=== PATIENT | male | born 1985 | race Caucasian/White ===

== ENCOUNTER 2017-05-09 04:22 | Emergency (ER) | payer MEDICAID ==
--- NOTE | 2017-05-09 04:49 | EDPHY ---
H & P Time Seen by Provider: 05/09/17 04:42 HPI/ROS: HPI Right testicular pain. 31-year-old male by private vehicle. This patient reports that he was sleeping in his car. He reports that he was getting ready to sleep about an hour ago. He was changing his clothes a thinks he twisted or hit his right testicle in the process. He reports that he felt a pop sensation at the under side and base of the right testicle. This was followed by a discomfort in the right testicle which has persisted but improved. He rates his pain currently as a 5/ 10. He denies sexual activity. No gross hematuria. No discharge. No other complaints. He has a history of a left-sided testicular cyst. ROS: Constitutional: No fever, no chills. No weakness. Gastrointestinal: No abdominal pain, no vomiting, no diarrhea. Genitourinary: No hematuria. No dysuria or increased frequency with urination. As above. Musculoskeletal: No back pain. No myalgias or arthralgias. Skin: No rashes. No lacerations or abrasions. Neurological: No focal weakness or altered sensation. Past medical history: Includes a cyst on his left upper testicle. Depression. Anxiety. Uses marijuana. Social history: Denies alcohol. Here by himself. Marijuana user. As above. Physical Exam: General Appearance: Alert, no distress. This patient is responding to questions appropriately and in full sentences. This patient appears well- hydrated and well-nourished. Testicular exam: No clinical evidence of torsion. Normal testicular lie. He is not tender over the area of the epididymis bilaterally. There are no masses palpable. Scrotum is without rash, edema, erythema, ecchymosis, warmth or swelling. Normal penis on gross inspection. No penile lesions. No discharge from the meatus. Gastrointestinal: Abdomen is soft and nontender, no masses, bowel sounds normal. No focal tenderness at McBurney's point. No Ceja sign. Neurological: Motor sensory function is grossly intact. Cranial nerves are normal. Gait is normal. Skin: Warm and dry, no rashes. Extremities are symmetrical. All joints range without pain or impingement. Psychiatric: No agitation. No depression. Database: EKG: Imaging: Testicular ultrasound: There is a minimal right-sided hydrocele. Complex left epididymal cyst noted. Blood flow to both testes is normal. No other significant findings. Results were discussed with staff radiologist Dr. David Fernandes. Procedures: Emergency department course: I discussed obtaining a testicular ultrasound for further evaluation with the patient. He consents. 6:00 a.m., testicular ultrasound results as above. No evidence of torsion or other acute pathology. Results were discussed with the patient. He denies any significant pain at this time. He feels comfortable going home. Return to emergency department precautions were thoroughly reviewed with him. Follow-up with Urology discussed. All of his questions were answered. He was discharged in good condition. Differential Diagnosis: The differential diagnosis on this patient includes but is not limited to testicular contusion, hydrocele and chronic left testicular cyst. Testicular torsion, epididymitis, STI, ruptured testicle unlikely. This represents a partial list of diagnoses considered. These considerations are based on history , physical exam, past history, reassessment and diagnostic testing. Smoking Status: Heavy smoker Allergies/Adverse Reactions: No Known Allergies Allergy (Unverified 05/09/17 04:24) Home Medications: Medication Instructions Recorded NK [No Known Home Meds] 05/09/17 Departure - Departure Disposition: Home, Routine, Self-Care Clinical Impression: Right testicular pain Condition: Good Instructions: Testicle Pain (ED) Additional Instructions: Read and follow provided instructions. Follow-up with Urology this coming week for re-evaluation and further management as needed. Call the office of Dr. Pagan on Thursday morning for appointment time. Explain this is for an emergency department follow-up. Return to the emergency department for return of pain, swelling or discoloration to the testicle, or other serious concerns. Referrals: Alfredo Pagan MD [Medical Doctor] - As per Instructions
[2017-05-09 06:20] VITALS: BP 110/67; PULSE 86; RESP 16; TEMP 98.4; O2SAT 96
== END 2017-05-09 06:10 | disposition home or self-care (01) ==
LOC: CED 04:22
DX: N50.811 Right testicular pain (principal)
CPT/HCPCS: 76870-PO

== ENCOUNTER 2017-09-12 06:22 | Emergency (ER) | payer MEDICAID ==
[2017-09-12 06:26] VITALS: BP 116/75
--- NOTE | 2017-09-12 06:51 | EDPHY ---
H & P Stated Complaint: L side abd pain r side groin pain for "a while" Time Seen by Provider: 09/12/17 06:28 HPI/ROS: HPI The patient presents with right groin pain which has been present for the last several weeks and is getting progressively worse. He was doing some research on the Internet this morning and became worried that there was something serious going on so we came to the emergency department. He describes an achy pain in his right groin that radiates down his right inner thigh. He says the pain feels muscular. He has not noticed any bulge in his groin. He does not have any testicular pain. He was in the emergency department in April of 2017 with testicular pain. He had a testicular ultrasound which revealed a complex cystic structure of his left testicle. He was supposed to follow up with Urology, but had difficulties with his insurance. He has been to another hospitals emergency department for this groin pain but was told it was a muscle pull.. REVIEW OF SYSTEMS Constitutional: No fever, no chills. Eyes: No discharge. ENT: No sore throat. Cardiovascular: No chest pain, no palpitations. Respiratory: No cough, no shortness of breath. Gastrointestinal: No abdominal pain, no vomiting. Genitourinary: No hematuria. Musculoskeletal: No back pain. Skin: No rashes. Neurological: No headache. PMHx: History of depression and anxiety Soc Hx: Marijuana user, currently homeless PHYSICAL General Appearance: Alert, no distress Eyes: Pupils equal and round no pallor or injection ENT, Mouth: Mucous membranes moist Respiratory: There are no retractions, lungs are clear to auscultation Cardiovascular: Regular rate and rhythm Gastrointestinal: Abdomen is soft and non-tender, no masses, bowel sounds normal : There is no clear defect felt in the inguinal region bilaterally, there is no testicular tenderness or overlying skin change Neurological: A&O, moves all extremities Skin: Warm and dry, no rashes Musculoskeletal: Neck is supple non tender Extremities: symmetrical, full range of motion Psychiatric: Patient is oriented X 3, there is no agitation Source: Patient Exam Limitations: No limitations - Personal History Current Tetanus/Diphtheria Vaccine: Unsure Current Tetanus Diphtheria and Acellular Pertussis (TDAP): Unsure - Medical/Surgical History Hx Asthma: No Hx Chronic Respiratory Disease: No Hx Diabetes: No Hx Cardiac Disease: No Hx Renal Disease: No Hx Cirrhosis: No Hx Alcoholism: No Hx HIV/AIDS: No Hx Splenectomy or Spleen Trauma: No Other PMH: R/O Cyst in throat. Marijuana user, depression, anxiety. - Social History Smoking Status: Heavy smoker Constitutional: Initial Vital Signs Temperature (C) 36.7 C 09/12/17 06:24 Heart Rate 103 H 09/12/17 06:24 Respiratory Rate 16 09/12/17 06:24 Blood Pressure 116/75 09/12/17 06:24 O2 Sat (%) 97 09/12/17 06:24 O2 Delivery Mode Room Air Allergies/Adverse Reactions: No Known Allergies Allergy (Unverified 05/09/17 04:24) Home Medications: Medication Instructions Recorded NK [No Known Home Meds] 05/09/17 Medical Decision Making Differential Diagnosis: This is a 31-year-old male who presents with several weeks of right-sided groin pain, worse when he sits. The pain radiates down his leg. On exam, he is generally well-appearing. I do not feel any defect in the inguinal region to suggest hernia, however he may have a small inguinal hernia based on his history. There is no evidence of testicular torsion or epididymitis given no testicular complaints or tenderness. He could possibly be suffering from groin strain. I have instructed him to use ibuprofen, ice, lie flat when he has pain. I will refer him to the general surgeon on-call for possible inguinal hernia. He is most concerned because he is currently uninsured though is working on obtaining Medicaid. I will put in a referral for our manager social responsibility as well. He does have this cyst of his left scrotum which I do not feel is contributing to his symptoms, though should be followed by a urologist and I have explained this to him. Departure - Departure Disposition: Home, Routine, Self-Care Clinical Impression: Right groin pain Condition: Good Instructions: Inguinal Hernia (ED) Additional Instructions: I suspect her pain could be related to a small inguinal hernia. If your having pain I recommend you take ibuprofen, try an ice pack, try laying down flat. I would recommend that you follow up with a general surgeon and I have given you information for 1 below. Please return to the emergency department if your worse in any way. Referrals: Adalberto Varela MD [Medical Doctor] - As per Instructions [facility],. [Clinic] - As per Instructions
--- NOTE | 2017-09-14 19:14 | ASMTCMCOM ---
CM Note CM Note Notes: Received a Case Mgmt consult order to follow-up with pt re: follow-up with general surgeon and urology. Spoke with patient and he states he will contact Dr Sridhar Varela ([phone]) later today. Spoke with Rachel at Dr Givens's office and alerted office of patient needing an appointment. Patient also states he plans on calling Dr Pagan with urology and schedule an appt. Patient states that now that his Medicaid is active again, he thinks he shouldn't have issues getting an appt. Patient provided the ED CM # in case he has further issues. CM available for further assistance if needed. Date Signed: 09/14/2017 07:13 PM Electronically Signed By:Paola Pratt RN
--- NOTE | 2017-09-15 12:13 | ASDISCHSUM ---
Discharge Information Plan Status:Home with No Needs Medically Cleared to Leave: Discharge Date:09/12/2017 07:16 AM CM D/C Disposition:Home, Routine, Self-Care ADT D/C Disposition:Home, Routine, Self-Care Projected Discharge Date:09/12/2017 07:16 AM Transportation at D/C:None or Unknown Discharge Delay Reason: Follow-Up Date:09/12/2017 07:16 AM Discharge Slot: Final Diagnosis: Placement Information Patient Contact Information Contact Name:LEIF Relationship:Mother Address: Work Phone: City: [facility] Phone: State/Zip Code: Email: Financial Information Financial Class:Medicaid Primary Plan Desc:[employer] Primary Plan Number:[id number] Secondary Plan Desc: Secondary Plan Number: Assessment Information [facility] CM Progress Note CM Note CM Note Notes: Received a Case Mgmt consult order to follow-up with pt re: follow-up with general surgeon and urology. Spoke with patient and he states he will contact Dr Sridhar Varela ([phone]) later today. Spoke with Rachel at Dr Givens's office and alerted office of patient needing an appointment. Patient also states he plans on calling Dr Pagan with urology and schedule an appt. Patient states that now that his Medicaid is active again, he thinks he shouldn't have issues getting an appt. Patient provided the ED CM # in case he has further issues. CM available for further assistance if needed. Date Signed: 09/14/2017 07:13 PM Electronically Signed By:Paola Pratt RN Intervention Information Intervention Type:Health Clinic Date of Service:09/14/2017 07:14 PM Patient Type:Emergency Room Staff Member:CATHLEEN Pratt [place] Hours:0.5 Discipline:[employer] Severity: Comment:
== END 2017-09-12 07:16 | disposition home or self-care (01) ==
DX: R10.30 Lower abdominal pain, unspecified (principal); F17.200 Nicotine dependence, unspecified, uncomplicated

== ENCOUNTER 2017-11-17 21:49 | Emergency (ER) | payer MEDICAID ==
--- NOTE | 2017-11-17 23:19 | EDPHY ---
H & P Stated Complaint: R Testicular numbness, R inner thigh numbness Time Seen by Provider: 11/17/17 22:04 HPI/ROS: Chief complaint: Right testicular and groin pain History of present illness: This is a 32-year-old male who presents to the emergency department for right testicular and groin pain. He has had pain on and off for a number of months. However it is worsened recently and feels different than it has in the past. It is worse with movement. He denies other associated signs or symptoms fevers, no urinary symptoms such as dysuria, frequency, hesitancy or hematuria, discharge from the penis, no difficulty ambulating. Review of systems: A 10 point review of systems was obtained and other than described above was negative - Personal History Current Tetanus/Diphtheria Vaccine: Unsure Current Tetanus Diphtheria and Acellular Pertussis (TDAP): Unsure - Medical/Surgical History Hx Asthma: No Hx Chronic Respiratory Disease: No Hx Diabetes: No Hx Cardiac Disease: No Hx Renal Disease: No Hx Cirrhosis: No Hx Alcoholism: No Hx HIV/AIDS: No Hx Splenectomy or Spleen Trauma: No Other PMH: R/O Cyst in throat. Marijuana user, depression, anxiety. - Social History Smoking Status: Heavy smoker - Physical Exam Exam: General Appearance: Alert and no distress. Eyes: Pupils equal and round no injection. Respiratory: Chest is non tender, lungs are clear to auscultation. Cardiac: regular rate and rhythm Gastrointestinal: Abdomen is soft and non tender, no masses, bowel sounds normal. Genitourinary: No urethral discharge. Penis or scrotum unremarkable. The testicles are nontender. No hernia. No inguinal adenopathy. Musculoskeletal: Patient has good range of motion and strength all koehler of the hips bilaterally. He is ambulating without difficulty. Skin: No rashes or lesions. Constitutional: Initial Vital Signs Temperature (C) 37 C 11/17/17 21:52 Heart Rate 100 11/17/17 21:52 Respiratory Rate 16 11/17/17 21:52 Blood Pressure 111/77 11/17/17 21:52 O2 Sat (%) 97 11/17/17 21:52 O2 Delivery Mode Room Air Allergies/Adverse Reactions: No Known Allergies Allergy (Unverified 05/09/17 04:24) Home Medications: Medication Instructions Recorded Cyclobenzaprine 11/17/17 Medical Decision Making - Diagnostics Imaging: Discussed imaging studies w/ fisher scallop Radiologist ED Course/Re-evaluation: Patient seen under the supervision of my secondary supervising physician Dr. Darwin Orozco. Patient presents for right testicular and groin pain. He is nontoxic. Vital signs are stable. Physical exam is benign. Ultrasound is unremarkable. He has had similar problems for a number of months and has been seen in this ER previously. I have encouraged him to follow up with primary care doctor for recheck. Return precautions are given. Differential Diagnosis: Included but not limited to orchitis, epididymitis, sprain, strain, contusion. Unlikely necrotizing fasciitis or Isai's gangrene, no pain out of proportion. Departure - Departure Disposition: Home, Routine, Self-Care Clinical Impression: Testicular pain, right Condition: Good Instructions: Testicle Pain (ED) Additional Instructions: Follow-up with a primary care doctor for recheck Use ibuprofen 600 mg 3 times a day for the next 2-3 days for symptom control If symptoms worsen or new symptoms develop return to the emergency room for recheck Referrals: NONE *PRIMARY CARE P,. [Primary Care Provider] - As per Instructions [facility],. [Clinic] - As per Instructions
[2017-11-17 23:54] VITALS: BP 130/90
[2017-11-18 13:26] LABS: GC AMPLIFICATION GENPROBE NEGATIVE (NEGATIVE)
== END 2017-11-17 23:54 | disposition home or self-care (01) ==
DX: N50.811 Right testicular pain (principal); F17.200 Nicotine dependence, unspecified, uncomplicated